=== PATIENT | female | born 1965 | race Caucasian/White ===

== ENCOUNTER 2019-03-08 16:25 | Observation (INO) ==
--- OUTSIDE RECORDS SUMMARY | 2019-03-08 16:29 | External Medical Summary | Continuity of Care Document ---
:1965 Author Name Annika Ryan Address Unavailable Unavailable , Care Team Providers Name Role Phone Raji Tavarez PA-C Unavailable [email or web address] PCP, UNKNOWN Unavailable Unavailable Problems Active medical history not documented Allergies and Adverse Reactions Allergy history not documented Medications Medications not documented Procedures Procedures not documented Immunizations Immunizations not documented Plan of Treatment Planned Observations Planned Goals not documented Results No Known Results Results not documented Encounters Appointment; Erin Tavarez PA-C 13-Apr-2009 12:30 Encounter Diagnosis: Problem not documented
[2019-03-08] MEDS ORDERED: SODIUM CHLORIDE 0.9% 1000ML 1,000 ML IV ONE (16:35)
[2019-03-08] MEDS ORDERED: ASPIRIN CHEW 324 MG PO STA (16:36)
[2019-03-08] MEDS ORDERED: NITROGLYCERIN SL 0.4 MG/TAB TAB SL STA (16:36)
[2019-03-08 17:24] LABS: Basophils # (auto) 0.03 K/uL (0-0.2); Basophils % (auto) 0.3 %; Eosinophils # (auto) 0.16 K/uL (0-0.5); Eosinophils % (auto) 1.9 %; Hematocrit (blood only) 38.8 % (37-47); Hemoglobin 14.2 g/dL (12.0-16.0); Immature Granulocytes # (auto) 0.05 K/uL (0.00-0.02); Immature Granulocytes % (auto) 0.6 %; Lymphocytes # (auto) 2.65 K/uL (1.2-3.4); Lymphocytes % (auto) 30.8 %; Mean Corpuscular Hgb Conc 36.6 g/dL (32-36); Mean Corpuscular Volume 78.2 fL (80-100); Mean Platelet Volume 10.6 fL (7.4-10.4); Monocytes # (auto) 0.58 K/uL (0.11-0.59); Monocytes % (auto) 6.7 %; Neutrophils # (auto) 5.13 K/uL (1.4-6.5); Neutrophils % (auto) 59.7 %; Platelet Count 274 K/uL (130-400); RDW Coefficient of Variation 13.3 % (11.5-14.5); RDW Standard Deviation 37.5 fL (36.4-46.3); Red Blood Count 4.96 M/uL (4.2-5.4)
[2019-03-08 17:35] LABS: D Dimer 480 ug/L FEU (0-500)
[2019-03-08 17:46] LABS: Alanine Aminotransferase 34 U/L (12-78); Albumin Level 4.5 gm/dl (3.4-5.0); Aspartate Aminotransferase 11 U/L (15-37); BUN Creatinine Ratio 21.1 (10-20); Blood Urea Nitrogen 19 mg/dl (7-18); Calcium 9.4 mg/dl (8.5-10.1); Carbon Dioxide 25 mmol/L (21-32); Chloride 97 mmol/L (98-107); Est GFR (African American) 81.8; Est GFR (Non-African American) 70.6; Glucose 362 mg/dl (70-99); Potassium 3.3 mmol/L (3.5-5.1); Sodium 132 mmol/L (136-145)
[2019-03-08 17:47] LABS: Albumin Globulin Ratio 1.3 (0.9-2); Alkaline Phosphatase 113 U/L (45-117); Bilirubin,Total 0.3 mg/dl (0.2-1); Globulin 3.6 gm/dl (2.5-4.0); Total Protein 8.1 gm/dl (6.4-8.2); Troponin I < 0.015 ng/ml (0-0.045)
[2019-03-08 17:58] LABS: Beta-Hydroxybutyrate 4.41 mg/dl (0.2-2.81)
[2019-03-08] MEDS ORDERED: NovoLIN-R INSULIN PER UNIT CHARGE IV STA (18:01)
[2019-03-08] MEDS ORDERED: POTASSIUM CHLORIDE 20 MEQ TABCR PO STA (18:01)
--- NOTE | 2019-03-08 18:01 | XRay Report ---
XR chest 1V portable HISTORY: Atypical Chest Pain COMPARISON: Chest 03/27/2010. FINDINGS: No pneumothorax. No pleural effusions. The cardiac silhouette is top normal in size. This r emains unchanged. Hazy appearance to the lung bases is likely due to the overlapping soft tissue. Oth erwise, the lungs are clear. IMPRESSION: No acute process. Electronically signed by: Bert Ang M.D. 03/08/2019 5:59 PM
--- NOTE | 2019-03-08 19:10 | History & Physical Report ---
Date of Service March 08, 2019 Assessment & Plan (1) Chest pain: (2) Palpitations: -Admit to telemetry -Patient presenting from home with reports of palpitations and chest tightness for the past 3 weeks with acute worsening of her symptoms today (self-reported heart rate in the 140s today) -In the ED, heart rate is controlled, initial troponin negative, EKG without acute ST changes; symptoms resolved after SL nitro -Risk factors: HTN, DM, HLD, obesity -Monitor on telemetry for arrhythmias -Continue cycle cardiac enzymes, check resting echo -PRN nitro and EKG with further episodes of chest pain -If no arrhythmias noted overnight, consider stress test in a.m. -? Due to hypertensive urgency; BP 174/89 on arrival, improved after SL nitro -Receive full dose aspirin in the ED, will continue with aspirin 81 mg tomorrow -Lipid panel in a.m. -Cardiac cath 2009: Normal coronaries; stress echo 06/2015: Equivocal <[address] depression lateral leads, however negative for inducible ischemia -Cardiology consult (3) DM2 (diabetes mellitus, type 2): -Hgb A1c 12.9 11/2018 -Blood glucose 362 on arrival, received 5 units regular insulin IV in ED -On metformin and high doses of insulin at home -Pharmacy glycemic consult (4) HTN (hypertension): -BP elevated on arrival, 174/89 -Improved after SL nitro -Continue home dose losartan for now (5) HLD (hyperlipidemia): -Continue statin (6) Depression: -Continue sertraline (7) DVT prophylaxis: -SQ Lovenox History of Present Illness Chief Complaint: Chest pain, palpitations Primary Care Provider: Khushi Artis MD 53-year-old female who presents to the ED with chest pain palpitations. Patient reports she first noticed her symptoms about 3 weeks ago. Patient states she has a watch that monitors her heart rate. A few weeks ago, she reports she was having palpitations and chest tightness and noted that her heart rate was in the 90s (normally runs in the low 70s). She also would have associated shortness of breath, diaphoresis, nausea, lightheadedness. She reports symptoms have persisted and she is having several episodes per day. No specific causative or relieving factors. Today, while walking to the bus she reports symptoms acutely worsened. She noted her heart rate to be in the 140s. She again had the shortness of breath however it was much worse than it had been. Symptoms persisted throughout the day and she presented to the ER for further evaluation. Patient denies any other recent illnesses, fevers, chills. No abdominal pain, vomiting, diarrhea. She denies syncopal events. No urinary symptoms. In the ED, patient's work-up is essentially unremarkable. Initial troponin is negative and EKG does not show any acute ST changes. She was given sublingual nitroglycerin with resolution of her symptoms. She was also given IVF, potassium replacement, and IV insulin (blood glucose 362). Allergies Allergy/AdvReac Type Severity Reaction Status Date / Time Cephalosporins Allergy Severe Anaphylaxis Verified 03/08/19 19:14 Penicillins Allergy Severe Anaphylaxis Verified 03/08/19 19:14 clindamycin Allergy Unknown MOUTH Verified 03/08/19 19:14 SORES,SOME THROAT SWELLING Tetracyclines Allergy Unknown Unknown Verified 03/08/19 19:14 trimethobenzamide Allergy Unknown Unknown Verified 03/08/19 19:14 venlafaxine Allergy Unknown COULDN'T Verified 03/08/19 19:14 FOCUS metformin AdvReac Unknown Diarrhea Verified 03/08/19 19:14 and weakness Dust Mite Extract Allergy Unknown POSITIVE Uncoded 03/08/19 19:14 ON ALLERGY TEST Home Medications Home Medications Medication Instructions Recorded Confirmed Type cyanocobalamin (vitamin B-12) 1,000 mcg PO DAILY 03/08/19 03/08/19 History cyanocobalamin (vitamin B-12) 1,000 mcg PO HS 03/08/19 03/08/19 History [Vitamin B-12] insulin aspart U-100 [Novolog 0 unit SUBCUT DIRECTED 03/08/19 03/08/19 History Flexpen U-100 Insulin] insulin aspart U-100 [Novolog See Rx Instructions .ROUTE .COMPLEX 03/08/19 03/08/19 History Flexpen U-100 Insulin] insulin glargine [Basaglar KwikPen 65 unit SUBCUT BID 03/08/19 03/08/19 History U-100 Insulin] losartan 25 mg PO HS 03/08/19 03/08/19 History magnesium 500 mg PO DAILY 03/08/19 03/08/19 History magnesium 500 mg PO HS 03/08/19 03/08/19 History metformin 1,700 mg PO HS 03/08/19 03/08/19 History metformin 850 mg PO QDL 03/08/19 03/08/19 History multivitamin 1 tab PO DAILY 03/08/19 03/08/19 History omeprazole 20 mg PO HS 03/08/19 03/08/19 History sertraline 25 mg PO HS 03/08/19 03/08/19 History sertraline 50 mg PO HS 03/08/19 03/08/19 History simvastatin 40 mg PO HS 03/08/19 03/08/19 History Past Med/Surg History Medical History Obesity (Chronic) DM2 (diabetes mellitus, type 2) (Chronic) "Requiring insulin " HTN (hypertension) (Chronic) HLD (hyperlipidemia) (Chronic) Depression (Chronic) delivery delivered (Chronic) "x2" History of hysteroscopy (Chronic) Diabetes mellitus (Chronic) HTN (hypertension) (Chronic) Surgical History H/O knee surgery (Chronic) H/O tubal ligation (Chronic) Hx of cardiac cath (Chronic) 2009 - normal coronaries H/O hernia repair (Chronic) S/P cholecystectomy (Chronic) Family History Mother Kidney disease Father Diabetes Uncle Heart disease Uncle Heart disease Uncle Heart disease Uncle Heart disease Social History Feels Safe at Home: Yes Smoking Status: Former smoker Hx Alcohol Use: Yes Alcohol type: beer and wine Alcohol Intake Frequency: Weekly Review of Systems Review of Systems: ROS per HPI, all other systems reviewed and negative Physical Exam Constitutional: WD/WN, vitals as above Eyes: PERRL, conjunctivae normal, anicteric sclerae ENMT: external ear and nose normal, oropharynx normal Respiratory: normal respiratory effort, lungs clear to auscultation Cardiovascular: Rate/Rhythm: regular rate and regular rhythm Vessels: normal peripheral pulses Extremities: no edema Chest (Breasts): Additional Comments: Mild sternal tenderness noted, patient reports not similar to pain she was experiencing before Gastrointestinal (Abdomen): normal bowel sounds, soft, nontender, no hepatosplenomegaly Musculoskeletal: no cyanosis or clubbing, extremities motor strength 5/5 Skin: no rashes, warm and dry Neurologic: PERRL, EOMI, accommodation nl, no face palsy, no dysarthria Psychiatric: A+Ox3, euthymic affect Results & Data Vital Signs (Past 12 Hours) Vital Signs Temp Pulse Pulse Resp BP BP Pulse Ox 03/08/19 17:52 76 16 116/57 L 03/08/19 17:21 88 18 114/74 98 03/08/19 17:13 82 80 20 159/74 H 96 03/08/19 16:28 36.4 C L 97 H 20 174/89 H 95 Laboratory Results Short CBC 03/08/19 Range/Units 17:07 WBC 8.60 (4.8-10.8) K/uL Hgb 14.2 (12.0-16.0) g/dL Hct 38.8 (37-47) % Plt Count 274 (130-400) K/uL BMP 03/08/19 17:07 Sodium 132 L Potassium 3.3 L Chloride 97 L Carbon Dioxide 25 BUN 19 H Creatinine 0.92 Glucose 362 H* Calcium 9.4 Cardiac Enzymes 03/08/19 Range/Units 17:07 Troponin I < 0.015 (0-0.045) ng/ml Liver Function 03/08/19 Range/Units 17:07 Total Bilirubin 0.3 (0.2-1) mg/dl AST 11 L (15-37) U/L ALT 34 (12-78) U/L Alkaline Phosphatase 113 (45-117) U/L Albumin 4.5 (3.4-5.0) gm/dl Diagnostic Findings CXR IMPRESSION: No acute process. Code Status & VTE Plan VTE Prophylaxis Plan VTE Prophylaxis will be ordered: Yes Supervising Physician Co-Signing Physician Notes Pt was seen and examined. Agreed with Sharri MARTINI exam, assessment am plan. 53-year-old female with PMH HTN, Diabetes, obesity presents to the ED with chest pain associated with palpitations. Pt said that she is starting having chest discomfort and palpitation in the last 2 weeks. She said that she does have a smart watch and about 1 week ago she noticed her HR was in the 90's. She said that today while walking to the bus stop, she developed pressure like chest pain associated with SOB. She said that she checked her watch and her HR was in the 140's. She called her PCP office and was advised to go to the ER. She said that she had a stress test done few years ago that was stopped because she was not able to complete it. Troponin on admission negative, will trend 2 more sets. EKG showed no ischemic changes. CXR showed no acute finding. Will get an echo in am. cardiology consult. Will make NPO after midnight for possible stress. Will monitor closely in tele. MD Kevin (1) Chest pain Chest pain type: unspecified Qualified Code(s): R07.9 - Chest pain, unspecified
[2019-03-08] MEDS ORDERED: ACETAMINOPHEN 325 MG TAB PO PRN (20:07)
[2019-03-08] MEDS ORDERED: NITROGLYCERIN SL 0.4 MG/TAB TAB SL PRN (20:07)
[2019-03-08] MEDS ORDERED: PHARMACY GLYCEMIC MGMT CONSULT PRN (20:16)
[2019-03-08 20:44] LABS: Prothrombin Time 9.8 Seconds (9.0-12.0)
[2019-03-08] MEDS ORDERED: GLUCOSE 40% GEL 15 GM TUBE PO PRN (20:45)
[2019-03-08] MEDS ORDERED: CARBOHYDRATES FOR HYPOGLYCEMIA PO PRN (20:45)
[2019-03-08] MEDS ORDERED: GLUCOSE 10 TABS/TUBE PO PRN (20:45)
[2019-03-08] MEDS ORDERED: DEXTROSE 50% 50 ML SYRINGE IV PRN (20:45)
[2019-03-08] MEDS ORDERED: GLUCAGON FOR INJ 1 MG VIAL IM PRN (20:45)
[2019-03-08] MEDS: INSULIN GLARGINE SOLOSTAR 100 UNITS/ML 3 ML PEN SC SCH (20:58)
[2019-03-08] MEDS ORDERED: ENOXAPARIN INJ 40 MG/0.4 ML SYR SQ SCH (21:00)
[2019-03-08] MEDS ORDERED: SIMVASTATIN 40 MG TAB PO SCH (21:00)
[2019-03-08] MEDS ORDERED: LOSARTAN POTASSIUM 25 MG TAB PO SCH (21:00)
[2019-03-08] MEDS: INSULIN ASPART 100 UNITS/ML 3 ML PEN SC SCH ×2 (21:03→23:56)
--- NOTE | 2019-03-08 23:42 | Emergency Department Note ---
Entered by Leena Watson acting as a scribe for Harshad Enriquez DO History of Present Illness General Chief complaint: Tachycardia Stated complaint: ELEVATED HERAT RATE 142, DOEN'T FEEL RIGHT Source: patient and RN notes reviewed History of Present Illness Provider complaint: chest pain Onset (ago): week(s) 1 Location: chest Pain Consistency: + constant Maximum Pain Intensity: 5 Quality: + other (tightness) Associated symptoms: + nausea/vomiting (+nausea, -vomiting), + shortness of breath and + other (+increased heart rate, +dizziness, +right arm numbness) The patient is a 53 year old female who presents to the Emergency Room with complaints of constant chest pain for the past week. She reports that it feels like tightness in her chest. She notes that her heart rate is usually in high 80s, but today it was consistently above 100 BPM. The patient states that she has had shortness of breath for the past 2-3 weeks. She notes that she has intermittent episodes of numbness in her right arm. She states that she currently has chest pain. She states that she has nausea, but denies any vomiting. The patient states that she has episodes of dizziness when she stands up. She denies any recent travel. She denies any past blood clots or history of cancer. She states that she has a history of hypertension and diabetes mellitus. She states that she is a non-smoker. Per the nurses note, the patient is febrile. Home Medications Home Medications Medication Instructions Recorded Confirmed Type cyanocobalamin (vitamin B-12) 1,000 mcg PO DAILY 03/08/19 03/08/19 History cyanocobalamin (vitamin B-12) 1,000 mcg PO HS 03/08/19 03/08/19 History [Vitamin B-12] insulin aspart U-100 [Novolog 0 unit SUBCUT DIRECTED 03/08/19 03/08/19 History Flexpen U-100 Insulin] insulin aspart U-100 [Novolog See Rx Instructions .ROUTE .COMPLEX 03/08/19 03/08/19 History Flexpen U-100 Insulin] insulin glargine [Basaglar KwikPen 65 unit SUBCUT BID 03/08/19 03/08/19 History U-100 Insulin] losartan 25 mg PO HS 03/08/19 03/08/19 History magnesium 500 mg PO DAILY 03/08/19 03/08/19 History magnesium 500 mg PO HS 03/08/19 03/08/19 History metformin 1,700 mg PO HS 03/08/19 03/08/19 History metformin 850 mg PO QDL 03/08/19 03/08/19 History multivitamin 1 tab PO DAILY 03/08/19 03/08/19 History omeprazole 20 mg PO HS 03/08/19 03/08/19 History sertraline 25 mg PO HS 03/08/19 03/08/19 History sertraline 50 mg PO HS 03/08/19 03/08/19 History simvastatin 40 mg PO HS 03/08/19 03/08/19 History Allergies Allergy/AdvReac Type Severity Reaction Status Date / Time Cephalosporins Allergy Severe Anaphylaxis Verified 03/08/19 19:14 Penicillins Allergy Severe Anaphylaxis Verified 03/08/19 19:14 clindamycin Allergy Unknown MOUTH Verified 03/08/19 19:14 SORES,SOME THROAT SWELLING Tetracyclines Allergy Unknown Unknown Verified 03/08/19 19:14 trimethobenzamide Allergy Unknown Unknown Verified 03/08/19 19:14 venlafaxine Allergy Unknown COULDN'T Verified 03/08/19 19:14 FOCUS metformin AdvReac Unknown Diarrhea Verified 03/08/19 19:14 and weakness Dust Mite Extract Allergy Unknown POSITIVE Uncoded 03/08/19 19:14 ON ALLERGY TEST Past Med/Surg History Medical History Obesity (Chronic) DM2 (diabetes mellitus, type 2) (Chronic) "Requiring insulin " HTN (hypertension) (Chronic) HLD (hyperlipidemia) (Chronic) Depression (Chronic) delivery delivered (Chronic) "x2" History of hysteroscopy (Chronic) Diabetes mellitus (Chronic) HTN (hypertension) (Chronic) Surgical History H/O knee surgery (Chronic) H/O tubal ligation (Chronic) Hx of cardiac cath (Chronic) 2009 - normal coronaries H/O hernia repair (Chronic) S/P cholecystectomy (Chronic) Family History Mother Kidney disease Father Diabetes Uncle Heart disease Uncle Heart disease Uncle Heart disease Uncle Heart disease Social History Preferred Language: Latvian Communication Ability: Effective Harness Brusher Required: No Beliefs That Will Affect Care: None Current Living Situation: Spouse Other Information That Helps Us Care for You: No Feels Safe at Home: Yes Safety Concerns: Feels Safe At This Time Smoking Status: Former smoker Smoking End Date: 1991 ; Hx Alcohol Use: Yes Alcohol type: beer and wine Alcohol Intake Frequency: Weekly Hx Substance Use: No Review of Systems See HPI for pertinent positives & negatives. and A total of 10 systems reviewed and were otherwise negative Physical Exam Vital Signs Vital Signs - 24 hr 03/08/19 16:28 03/08/19 16:57 03/08/19 17:00 Temperature 36.4 C L Temperature Source Oral Sepsis Recent Fever Within 48 Hours No Sepsis New/Unexplained Change in Mental Status No Sepsis Action Taken by Nursing No Action Required Pulse Rate 97 H 83 85 Pulse Rate [Right Finger] Pulse Rate from SpO2 Sensor Respiratory Rate 20 24 19 Respiratory Effort / Characteristics Non-Labored Respiratory Depth Normal Respiratory Pattern Regular Blood Pressure 174/89 H Blood Pressure [Right Arm] Blood Pressure Mean 117 Blood Pressure Mean [Right Arm] Pulse Oximetry 95 Oxygen Delivery Method Room Air 03/08/19 17:11 03/08/19 17:13 03/08/19 17:21 Temperature Temperature Source Sepsis Recent Fever Within 48 Hours Sepsis New/Unexplained Change in Mental Status Sepsis Action Taken by Nursing Pulse Rate 82 87 Pulse Rate [Right Finger] 80 88 Pulse Rate from SpO2 Sensor 85 89 Respiratory Rate 17 20 31 H Respiratory Effort / Characteristics Non-Labored Non-Labored Respiratory Depth Normal Normal Respiratory Pattern Blood Pressure 159/74 H 114/75 Blood Pressure [Right Arm] 159/74 H 114/74 Blood Pressure Mean 102 88 Blood Pressure Mean [Right Arm] 102 87 Pulse Oximetry 95 96 96 Oxygen Delivery Method Room Air 03/08/19 17:30 03/08/19 17:50 03/08/19 17:52 Temperature Temperature Source Sepsis Recent Fever Within 48 Hours Sepsis New/Unexplained Change in Mental Status Sepsis Action Taken by Nursing Pulse Rate 81 73 Pulse Rate [Right Finger] 76 Pulse Rate from SpO2 Sensor 82 73 Respiratory Rate 20 17 16 Respiratory Effort / Characteristics Respiratory Depth Respiratory Pattern Blood Pressure 129/66 116/57 L Blood Pressure [Right Arm] 116/57 L Blood Pressure Mean 87 76 Blood Pressure Mean [Right Arm] 76 Pulse Oximetry 95 96 Oxygen Delivery Method 03/08/19 18:00 03/08/19 18:30 03/08/19 18:31 Temperature Temperature Source Sepsis Recent Fever Within 48 Hours Sepsis New/Unexplained Change in Mental Status Sepsis Action Taken by Nursing Pulse Rate 77 71 75 Pulse Rate [Right Finger] Pulse Rate from SpO2 Sensor 78 72 75 Respiratory Rate 24 20 27 H Respiratory Effort / Characteristics Respiratory Depth Respiratory Pattern Blood Pressure 127/59 L 116/68 Blood Pressure [Right Arm] Blood Pressure Mean 81 84 Blood Pressure Mean [Right Arm] Pulse Oximetry 92 99 100 Oxygen Delivery Method GENERAL: alert, sitting up in bed, talking in full sentences, wearing glasses, pulse oxygen is at 98%, and heart rate is 92 bpm. EYE EXAM: normal conjunctiva OROPHARYNX: no exudate, no erythema, lips, buccal mucosa, and tongue normal and mucous membranes are moist NECK: supple, no nuchal rigidity, no adenopathy, non-tender LUNGS: Clear to auscultation. Normal chest wall mechanics HEART: no murmurs, S1 normal and S2 normal ABDOMEN: abdomen soft, non-tender, normo-active bowel sounds, no masses, no rebound or guarding. BACK: Back is symmetrical on inspection and there is no deformity, no midline tenderness, no CVA tenderness. SKIN: no rashes and no bruising UPPER EXTREMITIES: upper extremities are grossly normal. LOWER EXTREMITIES: No pitting edema, calves are equal bilaterally. NEURO EXAM: Normal sensorium, cranial nerves II-XII grossly intact, normal speech, no gross weakness of arms, no gross weakness of legs. Course 163: The patient was evaluated in room C1B, and a complete history and physical examination were performed. 1729: I reevaluated the patient and her chest pain has improved with nitroglycerine. 1810: I reevaluated the patient and updated her on her test results. 1816: I reviewed the patient's case with Sharri Britton. [facility] Hospitalist will evaluate the patient for further management Consultations Consultation #1: Sharri Britton Time: 18:17 Administered Medications Enoxaparin Sodium (Lovenox) 40 mg SQ Q24H BARBI Stop: 04/07/19 20:59 Last Admin: 03/08/19 21:38 Dose: 40 mg Documented by: [id number] Insulin Aspart (Novolog Flexpen) 0 units SC Q6 BARBI Stop: 04/07/19 20:59 Last Admin: 03/08/19 21:03 Dose: 8 units Documented by: [id number] Cosigned by: [id number] Insulin Glargine (Lantus Solostar Pen) 50 units SC BID BARBI Stop: 04/07/19 20:59 Last Admin: 03/08/19 20:58 Dose: 50 units Documented by: [id number] Cosigned by: [id number] Losartan Potassium (Cozaar) 25 mg PO HS BARBI Stop: 04/07/19 20:59 Last Admin: 03/08/19 20:56 Dose: 25 mg Documented by: [id number] Pantoprazole Sodium (Protonix) 40 mg PO DAILY BARBI Stop: 04/08/19 08:59 Last Admin: 03/08/19 21:38 Dose: 40 mg Documented by: [id number] Simvastatin (Zocor) 40 mg PO HS BARBI Stop: 04/07/19 20:59 Last Admin: 03/08/19 20:56 Dose: 40 mg Documented by: [id number] Discontinued Medications Aspirin (Aspirin) 324 mg PO NOW STA Stop: 03/08/19 16:37 Last Admin: 03/08/19 17:15 Dose: 324 mg Documented by: [id number] Sodium Chloride (Nss 1000ml) 1,000 mls @ 999 mls/hr IV .Q1H1M ONE Stop: 03/08/19 17:35 Last Infusion: 03/08/19 18:23 Dose: 0 mls/hr Documented by: [id number] Admin: 03/08/19 17:17 Dose: 999 mls/hr Documented by: [id number] Insulin Human Regular (Novolin R U-100 Per Unit) 5 units IV NOW STA Stop: 03/08/19 18:02 Last Admin: 03/08/19 18:11 Dose: 5 units Documented by: [id number] Cosigned by: [id number] Nitroglycerin (Nitrostat) 0.4 mg SL NOW STA Stop: 03/08/19 16:37 Last Admin: 03/08/19 17:17 Dose: 0.4 mg Documented by: [id number] Potassium Chloride (Klor-Con M20) 40 meq PO NOW STA Stop: 03/08/19 18:02 Last Admin: 03/08/19 18:11 Dose: 40 meq Documented by: [id number] Medical Decision Making Differential Diagnosis Differential diagnosis: Etiologies such as cardiac ischemia, aortic dissection, pulmonary embolism, pneumonia, pneumothorax, musculoskeletal, infections, pericarditis, myocarditis, esophageal rupture, gastrointestinal, as well as others were entertained. Medical Records Attestation: I reviewed the patient's medical records. Home Medications Current Medication List: was personally reviewed by me Laboratory Data Attestation: I reviewed the patient's lab results. Result diagrams: 03/08/19 17:07 03/08/19 17:07 Lab Results 03/08/19 03/08/19 03/08/19 Range/Units 17:07 17:07 17:07 WBC 8.60 (4.8-10.8) K/uL RBC 4.96 (4.2-5.4) M/uL Hgb 14.2 (12.0-16.0) g/dL Hct 38.8 (37-47) % MCV 78.2 L (80-100) fL MCH 28.6 (25-34) pg MCHC 36.6 H (32-36) g/dL RDW Std Deviation 37.5 (36.4-46.3) fL RDW Coeff of Zora 13.3 (11.5-14.5) % Plt Count 274 (130-400) K/uL MPV 10.6 H (7.4-10.4) fL Immature Gran % (Auto) 0.6 % Neut % (Auto) 59.7 % Lymph % (Auto) 30.8 % Hudson % (Auto) 6.7 % Eos % (Auto) 1.9 % Baso % (Auto) 0.3 % Immature Gran # (Auto) 0.05 H (0.00-0.02) K/uL Neut # (Auto) 5.13 (1.4-6.5) K/uL Lymph # (Auto) 2.65 (1.2-3.4) K/uL Hudson # (Auto) 0.58 (0.11-0.59) K/uL Eos # (Auto) 0.16 (0-0.5) K/uL Baso # (Auto) 0.03 (0-0.2) K/uL PT (9.0-12.0) Seconds INR (0.9-1.1) D-Dimer 480 (0-500) ug/L FEU Sodium 132 L (136-145) mmol/L Potassium 3.3 L (3.5-5.1) mmol/L Chloride 97 L (98-107) mmol/L Carbon Dioxide 25 (21-32) mmol/L Anion Gap 10.0 (3-11) BUN 19 H (7-18) mg/dl Creatinine 0.92 (0.6-1.2) mg/dl Est Cr Clr Drug Dosing 84.0 ml/min Est GFR ( Amer) 81.8 Est GFR (Non-Af Amer) 70.6 BUN/Creatinine Ratio 21.1 H (10-20) Glucose 362 H* (70-99) mg/dl POC Glucose (70-99) Calcium 9.4 (8.5-10.1) mg/dl Magnesium (1.8-2.4) mg/dl Total Bilirubin 0.3 (0.2-1) mg/dl AST 11 L (15-37) U/L ALT 34 (12-78) U/L Alkaline Phosphatase 113 (45-117) U/L Troponin I < 0.015 (0-0.045) ng/ml Total Protein 8.1 (6.4-8.2) gm/dl Albumin 4.5 (3.4-5.0) gm/dl Globulin 3.6 (2.5-4.0) gm/dl Albumin/Globulin Ratio 1.3 (0.9-2) Lipase 175 (73-393) U/L Beta-Hydroxybutyric Acd 4.41 H (0.2-2.81) mg/dl 03/08/19 03/08/19 03/08/19 Range/Units 17:07 17:07 18:43 WBC (4.8-10.8) K/uL RBC (4.2-5.4) M/uL Hgb (12.0-16.0) g/dL Hct (37-47) % MCV (80-100) fL MCH (25-34) pg MCHC (32-36) g/dL RDW Std Deviation (36.4-46.3) fL RDW Coeff of Zora (11.5-14.5) % Plt Count (130-400) K/uL MPV (7.4-10.4) fL Immature Gran % (Auto) % Neut % (Auto) % Lymph % (Auto) % Hudson % (Auto) % Eos % (Auto) % Baso % (Auto) % Immature Gran # (Auto) (0.00-0.02) K/uL Neut # (Auto) (1.4-6.5) K/uL Lymph # (Auto) (1.2-3.4) K/uL Hudson # (Auto) (0.11-0.59) K/uL Eos # (Auto) (0-0.5) K/uL Baso # (Auto) (0-0.2) K/uL PT 9.8 (9.0-12.0) Seconds INR 1.0 (0.9-1.1) D-Dimer (0-500) ug/L FEU Sodium (136-145) mmol/L Potassium (3.5-5.1) mmol/L Chloride (98-107) mmol/L Carbon Dioxide (21-32) mmol/L Anion Gap (3-11) BUN (7-18) mg/dl Creatinine (0.6-1.2) mg/dl Est Cr Clr Drug Dosing ml/min Est GFR ( Amer) Est GFR (Non-Af Amer) BUN/Creatinine Ratio (10-20) Glucose (70-99) mg/dl POC Glucose 284 H (70-99) Calcium (8.5-10.1) mg/dl Magnesium 2.0 (1.8-2.4) mg/dl Total Bilirubin (0.2-1) mg/dl AST (15-37) U/L ALT (12-78) U/L Alkaline Phosphatase (45-117) U/L Troponin I (0-0.045) ng/ml Total Protein (6.4-8.2) gm/dl Albumin (3.4-5.0) gm/dl Globulin (2.5-4.0) gm/dl Albumin/Globulin Ratio (0.9-2) Lipase (73-393) U/L Beta-Hydroxybutyric Acd (0.2-2.81) mg/dl Imaging Data Radiologist's Impression: Radiology results as stated below per my review and the radiologist's interpretation: XR chest 1V portable HISTORY: Atypical Chest Pain COMPARISON: Chest 03/27/2010. FINDINGS: No pneumothorax. No pleural effusions. The cardiac silhouette is top normal in size. This remains unchanged. Hazy appearance to the lung bases is likely due to the overlapping soft tissue. Otherwise, the lungs are clear. IMPRESSION: No acute process. Electronically signed by: Bert Ang M.D. 03/08/2019 5:59 PM ECG Data Attestation: I personally reviewed and interpreted this ECG as follows: Indication: chest pain Rate (beats per minute): 81 Rhythm: sinus rhythm Findings: + nonspecific-ST abn (inferior leads); no PVC Comparison ECG Date: from (11/01/15) Change: the following changes noted (no significant change in lead 3 and aVF, slightly different in lead 2) Blood Pressure Blood Pressure Findings: Low blood pressure Blood Pressure Disposition: further management by hospitalist AMANDA Narrative Patient is a 53-year-old female who presents the ER for shortness of breath and intermittent chest pain which is been present for the past 2 weeks. She notes that her symptoms have been getting worse. She does have a history of diabetes, hypertension and a family history of CAD. She also intermittently gets some left arm pain. IV was established blood work was obtained and shows no significant leukocytosis or anemia. INR was unremarkable. D-dimer was negative. BMP with mild hypokalemia. BSG was elevated at 362. Patient was given IV insulin. This trended down to 58. Lipase is normal. Troponin was negative. Patient was given IV fluids. She is given aspirin and nitro. Chest x-ray showed no focal infiltrate. EKG without any acute pathology. Patient was updated bedside. Discussed with the hospitalist for observation. Impression & Plan Chest pain, Shortness of breath, HTN (hypertension), Acute hyperglycemia Discharge Plan Visit Data *Final* Discharge Date/Time: 03/08/19 19:54 Chief Complaint: Tachycardia Stated Complaint: ELEVATED HERAT RATE 142, DOEN'T FEEL RIGHT ED Provider: Harshad Enriquez Discharge Problem: Chest pain, Shortness of breath, HTN (hypertension), Acute hyperglycemia Patient Disposition: Admitted As Inpatient Discharge Instructions Interventions: ED Discharge Assessment Last Done: 03/08/19 19:54 The scribe's documentation has been prepared under my direction and personally reviewed by me in its entirety. I confirm that the note above accurately reflects all work, treatment, procedures, and medical decision making performed by me.
[2019-03-09 05:45] LABS: Hematocrit (blood only) 39.8 % (37-47); Hemoglobin 13.9 g/dL (12.0-16.0); Mean Corpuscular Hgb Conc 34.9 g/dL (32-36); Mean Corpuscular Volume 79.9 fL (80-100); Mean Platelet Volume 10.8 fL (7.4-10.4); Platelet Count 244 K/uL (130-400); RDW Coefficient of Variation 13.6 % (11.5-14.5); RDW Standard Deviation 39.1 fL (36.4-46.3); Red Blood Count 4.98 M/uL (4.2-5.4); White Blood Count 7.28 K/uL (4.8-10.8)
[2019-03-09] MEDS: INSULIN ASPART 100 UNITS/ML 3 ML PEN SC SCH ×2 (06:04→13:04)
[2019-03-09 06:16] LABS: BUN Creatinine Ratio 23.6 (10-20); Calcium 8.4 mg/dl (8.5-10.1); Creatinine Clr Calc Pharmacy 121.3 ml/min; Est GFR (African American) 117.3; Est GFR (Non-African American) 101.2; Potassium 3.8 mmol/L (3.5-5.1)
[2019-03-09] MEDS: INSULIN GLARGINE SOLOSTAR 100 UNITS/ML 3 ML PEN SC SCH (08:46)
[2019-03-09] MEDS ORDERED: ASPIRIN 81 MG ECTAB PO SCH (09:00)
[2019-03-09] MEDS ORDERED: MAGNESIUM OXIDE 400 MG TAB PO SCH (09:00)
[2019-03-09] MEDS ORDERED: SERTRALINE HCL 50 MG TABLET PO SCH ×2 (09:00)
[2019-03-09] MEDS ORDERED: MULTIVITAMIN TAB PO SCH (09:00)
[2019-03-09] MEDS ORDERED: CYANOCOBALAMIN 500 MCG TABLET (VITAMIN B-12) PO SCH (09:00)
[2019-03-09] MEDS ORDERED: PANTOprazole 40 MG TAB PO SCH (09:00)
--- NOTE | 2019-03-09 09:56 | Cardiology Consultation ---
Date of Consultation March 09, 2019 Assessment & Plan (1) Chest pain: Atypical, reproducible with palpation, alleviated with stretching of the torso EKG's without acute change Troponin I negative x3 Resting echocardiography pending interpretation If resting echocardiography is acceptable would discharge home for outpatient Lexiscan nuclear stress testing (Patient notes inability to ambulate adequately for exercise stress testing (knee pain)). (2) Palpitations: EKG and telemetry with sinus/sinus tachycardia. No significant atrial or ventricular arrhythmias observed. Assess for underlying noncardiac causes. Consider addition of low-dose beta-fredy therapy for heart rate and blood pressure control. Recommend outpatient ZIO monitor to capture and document symptoms (3) HTN (hypertension): See above. Follow There is room to increase losartan if/when needed down the road as well. (4) HLD (hyperlipidemia): Continue moderate intensity statin therapy. History of Present Illness Reason for Consultation: Chest pain, palpitations Requesting Physician: VINI Faulkner Attending Physician: Elena Flores MD History of Present Illness Mr. Villa is a 53-year-old female who is being seen the request of VINI Saucedo. Reason for consultation is chest pain and palpitations. The patient describes being short of breath for the past few weeks. She also notes feeling that her heart is beating harder and at times faster than normal, noting that she can hear her heart beat in her ear. Yesterday, something felt different. She notes walking to the bus stop on her way to work at [employer]. When she got to the bus stop she noticed that her smart watch recorded a heart rate of 142 bpm. Throughout the day she noticed that her heart rate never went below 100, typically with heart rates in the 70s to 90 range. She notes feeling like she had a hard time catching her breath. She then phoned her primary care physician, Dr. Artis, who referred her to the emergency room for further evaluation. In the emergency room she was evaluated by Dr. Enriquez. EKG showed no acute change, normal sinus rhythm at 81 bpm. Repeat EKG this morning reveals normal sinus rhythm at 75 bpm with an incomplete right bundle branch block. Continuous telemetry monitoring reveals sinus rhythm/sinus tachycardia with rates ranging from 70 to 110 bpm. Troponin I negative x3, less than 0.015. Resting echocardiography has been completed though is pending interpretation. D-dimer was negative. Blood pressure was notably elevated on presentation, 174/89. This morning, the patient notes that the tightness in the chest is still "kind of there." This tightness wraps around both sides of the upper abdomen/lower chest. Patient notes that it feels musculoskeletal. The discomfort is aggravated by palpation and seems to be better when she stretches her torso. Patient previously underwent diagnostic cardiac catheterization for evaluation of atypical chest discomfort on March 28, 2010. Diagnostic cardiac catheterization performed by Dr. Alan Carias at [facility] on 03/28/2010 revealed angiographically normal coronaries with normal left ventricular systolic function and normal left heart pressures. Allergies Allergy/AdvReac Type Severity Reaction Status Date / Time Cephalosporins Allergy Severe Anaphylaxis Verified 03/08/19 19:14 Penicillins Allergy Severe Anaphylaxis Verified 03/08/19 19:14 clindamycin Allergy Unknown MOUTH Verified 03/08/19 19:14 SORES,SOME THROAT SWELLING Tetracyclines Allergy Unknown Unknown Verified 03/08/19 19:14 trimethobenzamide Allergy Unknown Unknown Verified 03/08/19 19:14 venlafaxine Allergy Unknown COULDN'T Verified 03/08/19 19:14 FOCUS metformin AdvReac Unknown Diarrhea Verified 03/08/19 19:14 and weakness Dust Mite Extract Allergy Unknown POSITIVE Uncoded 03/08/19 19:14 ON ALLERGY TEST Home Medications Home Medications Medication Instructions Recorded Confirmed Type cyanocobalamin (vitamin B-12) 1,000 mcg PO DAILY 03/08/19 03/08/19 History cyanocobalamin (vitamin B-12) 1,000 mcg PO HS 03/08/19 03/08/19 History [Vitamin B-12] insulin aspart U-100 [Novolog 0 unit SUBCUT DIRECTED 03/08/19 03/08/19 History Flexpen U-100 Insulin] insulin aspart U-100 [Novolog See Rx Instructions .ROUTE .COMPLEX 03/08/19 03/08/19 History Flexpen U-100 Insulin] insulin glargine [Basaglar KwikPen 65 unit SUBCUT BID 03/08/19 03/08/19 History U-100 Insulin] losartan 25 mg PO HS 03/08/19 03/08/19 History magnesium 500 mg PO DAILY 03/08/19 03/08/19 History magnesium 500 mg PO HS 03/08/19 03/08/19 History metformin 1,700 mg PO HS 03/08/19 03/08/19 History metformin 850 mg PO QDL 03/08/19 03/08/19 History multivitamin 1 tab PO DAILY 03/08/19 03/08/19 History omeprazole 20 mg PO HS 03/08/19 03/08/19 History sertraline 25 mg PO HS 03/08/19 03/08/19 History sertraline 50 mg PO HS 03/08/19 03/08/19 History simvastatin 40 mg PO HS 03/08/19 03/08/19 History Patient History Medical History Obesity (Chronic) DM2 (diabetes mellitus, type 2) (Chronic) "Requiring insulin " HTN (hypertension) (Chronic) HLD (hyperlipidemia) (Chronic) Depression (Chronic) delivery delivered (Chronic) "x2" History of hysteroscopy (Chronic) Diabetes mellitus (Chronic) HTN (hypertension) (Chronic) Surgical History H/O knee surgery (Chronic) H/O tubal ligation (Chronic) Hx of cardiac cath (Chronic) 2009 - normal coronaries H/O hernia repair (Chronic) S/P cholecystectomy (Chronic) Family History Mother Kidney disease Father Diabetes Uncle Heart disease Uncle Heart disease Uncle Heart disease Uncle Heart disease Social History Preferred Language: Burkinan Communication Ability: Effective Herpetology Teacher Required: No Beliefs That Will Affect Care: None Current Living Situation: Spouse Other Information That Helps Us Care for You: No Feels Safe at Home: Yes Safety Concerns: Feels Safe At This Time Smoking Status: Former smoker Smoking End Date: 1991 ; Hx Alcohol Use: Yes Alcohol type: beer and wine Alcohol Intake Frequency: Weekly Hx Substance Use: No Review of Systems Review of Systems: All systems reviewed & are unremarkable except as noted in HPI & below Physical Exam Physical Exam: General: A&Ox3. NAD. HEENT: Normocephalic. Atraumatic. PER. Conjunctiva pink, sclera clear. Neck: No carotid bruits. No JVD. Heart: Regular rate 100 bpm. No murmur. No rub. Lungs: Clear to auscultation. Abdomen: +BS. Extremities: No clubbing, cyanosis, or edema. Limited neurological examination is without focal deficits. Results & Data Vital Signs (Past 12 Hours) Vital Signs Temp Pulse Resp BP Pulse Ox 03/09/19 07:39 36.6 C 78 20 129/76 96 03/09/19 03:13 36.8 C 80 17 145/81 H 95 03/08/19 23:10 37.0 C 76 17 127/80 97 Laboratory Results - last 24 hr 03/08/19 03/08/19 03/08/19 17:07 17:07 17:07 WBC 8.60 RBC 4.96 Hgb 14.2 Hct 38.8 MCV 78.2 L MCH 28.6 MCHC 36.6 H RDW Std Deviation 37.5 RDW Coeff of Zora 13.3 Plt Count 274 MPV 10.6 H Immature Gran % (Auto) 0.6 Neut % (Auto) 59.7 Lymph % (Auto) 30.8 [place] % (Auto) 6.7 Eos % (Auto) 1.9 Baso % (Auto) 0.3 Immature Gran # (Auto) 0.05 H Neut # (Auto) 5.13 Lymph # (Auto) 2.65 [place] # (Auto) 0.58 Eos # (Auto) 0.16 Baso # (Auto) 0.03 PT INR D-Dimer 480 Sodium 132 L Potassium 3.3 L Chloride 97 L Carbon Dioxide 25 Anion Gap 10.0 BUN 19 H Creatinine 0.92 Est Cr Clr Drug Dosing 84.0 Est GFR ( Amer) 81.8 Est GFR (Non-Af Amer) 70.6 BUN/Creatinine Ratio 21.1 H Glucose 362 H* POC Glucose Calcium 9.4 Magnesium Total Bilirubin 0.3 AST 11 L ALT 34 Alkaline Phosphatase 113 Troponin I < 0.015 Total Protein 8.1 Albumin 4.5 Globulin 3.6 Albumin/Globulin Ratio 1.3 Triglycerides Cholesterol LDL Cholesterol, Calc VLDL Cholesterol, Calc HDL Cholesterol Cholesterol/HDL Ratio Lipase 175 Beta-Hydroxybutyric Acd 4.41 H 03/08/19 03/08/19 03/08/19 17:07 17:07 18:43 WBC RBC Hgb Hct MCV MCH MCHC RDW Std Deviation RDW Coeff of Zora Plt Count MPV Immature Gran % (Auto) Neut % (Auto) Lymph % (Auto) [place] % (Auto) Eos % (Auto) Baso % (Auto) Immature Gran # (Auto) Neut # (Auto) Lymph # (Auto) [place] # (Auto) Eos # (Auto) Baso # (Auto) PT 9.8 INR 1.0 D-Dimer Sodium Potassium Chloride Carbon Dioxide Anion Gap BUN Creatinine Est Cr Clr Drug Dosing Est GFR ( Amer) Est GFR (Non-Af Amer) BUN/Creatinine Ratio Glucose POC Glucose 284 H Calcium Magnesium 2.0 Total Bilirubin AST ALT Alkaline Phosphatase Troponin I Total Protein Albumin Globulin Albumin/Globulin Ratio Triglycerides Cholesterol LDL Cholesterol, Calc VLDL Cholesterol, Calc HDL Cholesterol Cholesterol/HDL Ratio Lipase Beta-Hydroxybutyric Acd 03/08/19 03/08/19 03/08/19 20:49 22:52 23:54 WBC RBC Hgb Hct MCV MCH MCHC RDW Std Deviation RDW Coeff of Zora Plt Count MPV Immature Gran % (Auto) Neut % (Auto) Lymph % (Auto) [place] % (Auto) Eos % (Auto) Baso % (Auto) Immature Gran # (Auto) Neut # (Auto) Lymph # (Auto) [place] # (Auto) Eos # (Auto) Baso # (Auto) PT INR D-Dimer Sodium Potassium Chloride Carbon Dioxide Anion Gap BUN Creatinine Est Cr Clr Drug Dosing Est GFR ( Amer) Est GFR (Non-Af Amer) BUN/Creatinine Ratio Glucose POC Glucose 258 H 313 H* Calcium Magnesium Total Bilirubin AST ALT Alkaline Phosphatase Troponin I < 0.015 Total Protein Albumin Globulin Albumin/Globulin Ratio Triglycerides Cholesterol LDL Cholesterol, Calc VLDL Cholesterol, Calc HDL Cholesterol Cholesterol/HDL Ratio Lipase Beta-Hydroxybutyric Acd 03/09/19 03/09/19 03/09/19 05:27 05:27 05:27 WBC 7.28 RBC 4.98 Hgb 13.9 Hct 39.8 MCV 79.9 L MCH 27.9 MCHC 34.9 RDW Std Deviation 39.1 RDW Coeff of Zora 13.6 Plt Count 244 MPV 10.8 H Immature Gran % (Auto) Neut % (Auto) Lymph % (Auto) [place] % (Auto) Eos % (Auto) Baso % (Auto) Immature Gran # (Auto) Neut # (Auto) Lymph # (Auto) [place] # (Auto) Eos # (Auto) Baso # (Auto) PT INR D-Dimer Sodium 139 D Potassium 3.8 D Chloride 106 Carbon Dioxide 27 Anion Gap 6.0 BUN 15 Creatinine 0.64 Est Cr Clr Drug Dosing 121.3 Est GFR ( Amer) 117.3 Est GFR (Non-Af Amer) 101.2 BUN/Creatinine Ratio 23.6 H Glucose 256 H POC Glucose Calcium 8.4 L Magnesium Total Bilirubin AST ALT Alkaline Phosphatase Troponin I < 0.015 Total Protein Albumin Globulin Albumin/Globulin Ratio Triglycerides 328 H Cholesterol 129 LDL Cholesterol, Calc 32 VLDL Cholesterol, Calc 66 HDL Cholesterol 31 Cholesterol/HDL Ratio 4 Lipase Beta-Hydroxybutyric Acd 03/09/19 06:02 WBC RBC Hgb Hct MCV MCH MCHC RDW Std Deviation RDW Coeff of Zora Plt Count MPV Immature Gran % (Auto) Neut % (Auto) Lymph % (Auto) [place] % (Auto) Eos % (Auto) Baso % (Auto) Immature Gran # (Auto) Neut # (Auto) Lymph # (Auto) [place] # (Auto) Eos # (Auto) Baso # (Auto) PT INR D-Dimer Sodium Potassium Chloride Carbon Dioxide Anion Gap BUN Creatinine Est Cr Clr Drug Dosing Est GFR ( Amer) Est GFR (Non-Af Amer) BUN/Creatinine Ratio Glucose POC Glucose 272 H Calcium Magnesium Total Bilirubin AST ALT Alkaline Phosphatase Troponin I Total Protein Albumin Globulin Albumin/Globulin Ratio Triglycerides Cholesterol LDL Cholesterol, Calc VLDL Cholesterol, Calc HDL Cholesterol Cholesterol/HDL Ratio Lipase Beta-Hydroxybutyric Acd (1) Chest pain Chest pain type: unspecified Qualified Code(s): R07.9 - Chest pain, unspecified
[2019-03-09 13:08] LABS: Beta-Hydroxybutyrate 3.17 mg/dl (0.2-2.81)
[2019-03-09] MEDS ORDERED: BASAGLAR INSULIN SQ ONE (14:00)
--- NOTE | 2019-03-09 14:49 | Pharmacy Report ---
Glycemic Control Consultation - Date of Service March 09, 2019 - Scope Scope: Glycemic Pharmacist consulted by Sharri Chaudhry on 03/08 for glycemic control and to write orders per [facility] inpatient glycemic control protocol - Objective Weight: 102.2 kg Accuchecks BSG (last 24hrs): 03/08/19 03/08/19 03/08/19 17:07 18:43 20:49 Glucose 362 H* POC Glucose 284 H 258 H 03/08/19 03/09/19 03/09/19 23:54 05:27 06:02 Glucose 256 H POC Glucose 313 H* 272 H 03/09/19 12:18 Glucose 325 H* POC Glucose Laboratory Data (last 24hrs): 03/08/19 03/09/19 03/09/19 17:07 05:27 12:18 Potassium 3.3 L 3.8 D Carbon Dioxide 25 27 Anion Gap 10.0 6.0 Creatinine 0.92 0.64 Est Cr Clr Drug Dosing 84.0 121.3 Beta-Hydroxybutyric Acd 4.41 H 3.17 H - Recent Pertinent Medications Outpatient Anti-diabetic Regimen: * basaglar 65 units BID, Novolog 12 units with breakfast, 16 with lunch, 15 with dinner + SSI CF 1:25 for BSG >125 * A1c = pending for tomorrow Risk Factors for Insulin Resistance: * Diet: T2DM - Assessment & Plan Assessment & Plan: ASSESSMENT: * 53 year old female admitted with chest pain/cardio workup pending. PMHx significant for DM2, htn,hld * Patient reports taking 65 units prior to hospital admission + 25 short acting insulin on 03/08 - receives total of ~173 units of insulin outpatient * BSGs trending down this morning from 313 to 256 mg/dL - patient continues NPO ; give 50 units of Lantus * Lunchtime BSG trending up despite NPO status to 325 mg/dL - also now starting diet, will tighten CF/CR and also provide additional Lantus to make up for reduced doses * Patient requesting to use their own Basaglar - labeled and sent up to patient. Will add overnight checks. PLAN FOR INPATIENT GLYCEMIC CONTROL: * Basal insulin * Lantus 50 x 1 this AM (NPO status) * Ordered 30 units x 1 for lunchtime - diet started, BSGs trending up * Basaglar HS per scale (if BSG 180 or less give 50 units, if BSG greater than 180 give 65 units) * Bolus insulin - tighten * NovoLog per scale ACHS or Q6hrs while NPO * Goal Range: Low 110 mg/dL - High 140 mg/dL * Correction Factor: 5 mg/dL/unit * Nutritional / Prandial insulin per carb ratio of 1 unit per 2 grams CHO consumed * Please note that the plan above was derived based on current level of insulin resistance and hospital stress. These recommendations are appropriate for inpatient admission only. Plan of care upon discharge will need to be reassessed to avoid potential outpatient hypo/hyperglycemia. Thank you.
[2019-03-09] MEDS ORDERED: INSULIN ASPART 100 UNITS/ML 3 ML PEN SC SCH (16:30)
--- NOTE | 2019-03-09 17:26 | Hospitalist Progress Note ---
Date of Service March 09, 2019 Assessment & Plan (1) Chest pain: symptom has resolved appreciate input from Cardiology symptom atypical for angina -ongoing intermittently for last 3 weeks EKG shows no ischemic changes serial troponin negative ECHO : normal LV function , with no wall motion abnormality stable to be discharged home today recommends to addition of Lopressor 12.5 mg daily pt will be continued with Losartan 25 mg daily clinic follow up with Cardiology for Lexiscan cardiac stress test (2) Palpitations: - -pt reports of palpitations and chest tightness for the past 3 weeks -overnight telemetry shows no arrythmia /no tachycardia -remains in sinus with HR in 80-90's ECHO : no wall motion abnormality - -Cardiac cath 2009: Normal coronaries; stress echo 06/2015: Equivocal <[address] depression lateral leads, however negative for inducible ischemia -appreciate input from Cardiology out pt Zio patch addition of Lopressor 12.5 mg daily (3) DM2 (diabetes mellitus, type 2): very poorly controlled -Hgb A1c 12.9 11/2018 BSG remained significantly high during her hospital stay -On metformin and high doses of insulin at home -Pharmacy glycemic consult-appreciated pt follows with [facility] diabetic clinic at [facility] pt is adviced to continued follow up with DM clinic for further titration of insulin regimen as needed (4) HTN (hypertension): presented with hypertensive urgency possibly contributing to presenting symptom BP improved while in hospital appreciate input from cardiology recommend addition of low dose Lopressor 12.5 mg daily pt is asked to cont to take Losartan close follow up with Family physician for BP monitoring and management (5) HLD (hyperlipidemia): -Continue statin (6) Depression: -Continue sertraline (7) DVT prophylaxis: -SQ Lovenox CODE STATUS : FULL CODE DISPOSITION : stable to be discharged home today Subjective did not had any symptom of chest heaviness /palpitation /dizzy spell today no SOB no arrythmia or tachycardia noted on tele appreciate input from cardiology symptom on presentation were possible due to Hypertensive urgency recommends to add Lopressor 12.5 mg daily Zio patch to monitor for arrythmia out pt cardiac lexican test ( 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 do 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 ) Physical Exam Constitutional: WD/WN, vitals as above Eyes: PERRL, conjunctivae normal, anicteric sclerae ENMT: external ear and nose normal, oropharynx normal Respiratory: normal respiratory effort, lungs clear to auscultation Cardiovascular: Rate/Rhythm: regular rate and regular rhythm Vessels: normal peripheral pulses Extremities: no edema Gastrointestinal (Abdomen): normal bowel sounds, soft, nontender, no hepatosplenomegaly Musculoskeletal: no cyanosis or clubbing, extremities motor strength 5/5 Skin: no rashes, warm and dry Neurologic: PERRL, EOMI, accommodation nl, no face palsy, no dysarthria Psychiatric: A+Ox3, euthymic affect Results & Data Vital Signs (Past 12 Hours) Vital Signs Temp Pulse Resp BP Pulse Ox 03/09/19 15:21 36.8 C 83 18 133/85 96 03/09/19 12:08 36.7 C 94 H 18 142/84 H 96 03/09/19 07:39 36.6 C 78 20 129/76 96 (1) Chest pain Chest pain type: unspecified Qualified Code(s): R07.9 - Chest pain, unspecified (2) DM2 (diabetes mellitus, type 2) Diabetes mellitus terminal superintendent insulin use: with care home use Diabetes mellitus complication status: with hyperglycemia Qualified Code(s): E11.65 - Type 2 diabetes mellitus with hyperglycemia; Z79.4 - half-way (current) use of insulin (3) HTN (hypertension) Hypertension type: unspecified Qualified Code(s): I10 - Essential (primary) hypertension (4) HLD (hyperlipidemia) Hyperlipidemia type: unspecified Qualified Code(s): E78.5 - Hyperlipidemia, unspecified (5) Depression Depression Type: unspecified Qualified Code(s): F32.9 - Major depressive disorder, single episode, unspecified
--- NOTE | 2019-03-09 17:41 | Discharge Summary ---
Date of Service March 09, 2019 Admission HPI Per Admitting Provider 53-year-old female who presents to the ED with chest pain palpitations. Patient reports she first noticed her symptoms about 3 weeks ago. Patient states she has a watch that monitors her heart rate. A few weeks ago, she reports she was having palpitations and chest tightness and noted that her heart rate was in the 90s (normally runs in the low 70s). She also would have associated shortness of breath, diaphoresis, nausea, lightheadedness. She reports symptoms have persisted and she is having several episodes per day. No specific causative or relieving factors. Today, while walking to the bus she reports symptoms acutely worsened. She noted her heart rate to be in the 140s. She again had the shortness of breath however it was much worse than it had been. Symptoms persisted throughout the day and she presented to the ER for further evaluation. Patient denies any other recent illnesses, fevers, chills. No abdominal pain, vomiting, diarrhea. She denies syncopal events. No urinary symptoms. In the ED, patient's work-up is essentially unremarkable. Initial troponin is negative and EKG does not show any acute ST changes. She was given sublingual nitroglycerin with resolution of her symptoms. She was also given IVF, potassium replacement, and IV insulin (blood glucose 362). Principal Diagnosis ATYPICAL CHEST PAIN /NO ACUTE CORONARY EVENT /HYPERGLYCEMIA/TYPE 2 DIABETES Discharge Exam Constitutional WD/WN, vitals as above Eyes PERRL, conjunctivae normal, anicteric sclerae ENMT external ear and nose normal, oropharynx normal Respiratory normal respiratory effort, lungs clear to auscultation Cardiovascular Rate/Rhythm: regular rate and regular rhythm Vessels: normal peripheral pulses Extremities: no edema Gastrointestinal (Abdomen) normal bowel sounds, soft, nontender, no hepatosplenomegaly Musculoskeletal no cyanosis or clubbing, extremities motor strength 5/5 Skin no rashes, warm and dry Neurologic PERRL, EOMI, accommodation nl, no face palsy, no dysarthria Psychiatric A+Ox3, euthymic affect Discharge Data Allergies Allergy/AdvReac Type Severity Reaction Status Date / Time Cephalosporins Allergy Severe Anaphylaxis Verified 03/08/19 19:14 Penicillins Allergy Severe Anaphylaxis Verified 03/08/19 19:14 clindamycin Allergy Intermediate MOUTH Verified 03/09/19 15:40 SORES,SOME THROAT SWELLING house dust mite Allergy Unknown POSITIVE Verified 03/09/19 15:40 ON ALLERGY TEST Tetracyclines Allergy Unknown Unknown Verified 03/08/19 19:14 trimethobenzamide Allergy Unknown Unknown Verified 03/08/19 19:14 metformin AdvReac Intermediate Diarrhea Verified 03/09/19 15:40 and weakness venlafaxine AdvReac Mild COULDN'T Verified 03/09/19 15:40 FOCUS Consultations 03/08/19 18:21 ED Decision to Admit Stat 03/08/19 20:07 Consult Cardiology Routine Hospital Course (1) Chest pain: symptom has resolved appreciate input from Cardiology symptom atypical for angina -ongoing intermittently for last 3 weeks EKG shows no ischemic changes serial troponin negative ECHO : normal LV function , with no wall motion abnormality stable to be discharged home today recommends to addition of Lopressor 12.5 mg daily pt will be continued with Losartan 25 mg daily clinic follow up with Cardiology for Lexiscan cardiac stress test (2) Palpitations: - -pt reports of palpitations and chest tightness for the past 3 weeks -overnight telemetry shows no arrythmia /no tachycardia -remains in sinus with HR in 80-90's ECHO : no wall motion abnormality - -Cardiac cath 2009: Normal coronaries; stress echo 06/2015: Equivocal <[address] depression lateral leads, however negative for inducible ischemia -appreciate input from Cardiology out pt Zio patch addition of Lopressor 12.5 mg daily (3) DM2 (diabetes mellitus, type 2): very poorly controlled -Hgb A1c 12.9 11/2018 BSG remained significantly high during her hospital stay -On metformin and high doses of insulin at home -Pharmacy glycemic consult-appreciated pt follows with [facility] diabetic clinic at [facility] pt is adviced to continued follow up with DM clinic for further titration of insulin regimen as needed (4) HTN (hypertension): presented with hypertensive urgency possibly contributing to presenting symptom BP improved while in hospital appreciate input from cardiology recommend addition of low dose Lopressor 12.5 mg daily pt is asked to cont to take Losartan close follow up with Family physician for BP monitoring and management (5) HLD (hyperlipidemia): -Continue statin (6) Depression: -Continue sertraline (7) DVT prophylaxis: -SQ Lovenox CODE STATUS : FULL CODE DISPOSITION : stable to be discharged home today Total Time Total Time Spent Total Time Spent (In Minutes): approx 35 mins Total Time Includes: Examination of the Patient, Discharge Planning and Medication Reconciliation Discharge Plan Discharge Items Patient Disposition: Home - Self-Care Reason For Visit: CHEST PAIN,PALPITATIONS Discharge Diagnosis: ATYPICAL CHEST PAIN /NO ACUTE CORONARY EVENT /HYPERGLYCEMIA/TYPE 2 DIABETES Discharge Goals: Decrease discomfort and Diagnostic testing Activity: Resume your previous activity Non-emergency contact: Primary Care Provider Call non-emergency contact if: you have any medication questions Follow-up/Referrals: Astrid Artis MD [Primary Care Provider] - 03/15/19 12:45 pm Diet: Carb Consistent or DM2 and Heart Healthy Addtl Provider Instructions: HOSPITAL FOLLOW UP WITH DR ASTRID ARTIS ON 03/15/2019 @ 12: 45 PM PLEASE FOLLOW UP WITH CARDIOLOGY AT [facility] CARDIOLOGY SUITE FOR LEXISCAN CARDIAC STRESS TEST YOU BLOOD SUGARS HAS BEEN DIFFICULT TO CONTROL NEW MEDICATION: 1.Lopressor 12.5 mg daily -for High blood pressure you may need further adjustment /addition of blood pressure medication -please follow up with Dr Astrid Artis for recommendation you will need Zio Patch a 14 days wearable hall monitor to asses for episodes of high heart rate /tachycardia [facility] clinic will be able to arrange for that you will need a referral/order form Dr Astrid Artis Prescriptions: New metoprolol tartrate 25 mg tablet 12.5 mg PO DAILY 30 Days Qty: 15 RF: 0 Continued metformin 850 mg tablet 850 mg PO QDL RF: 0 simvastatin 40 mg tablet 40 mg PO HS RF: 0 losartan 25 mg tablet 25 mg PO HS RF: 0 sertraline 25 mg tablet 25 mg PO HS RF: 0 omeprazole 20 mg capsule,delayed release(DR/EC) 20 mg PO HS RF: 0 sertraline 50 mg tablet 50 mg PO HS RF: 0 Novolog Flexpen U-100 Insulin 100 unit/mL (3 mL) Insulin Pen SUBCUT DIRECTED RF: 0 Basaglar KwikPen U-100 Insulin 100 unit/mL (3 mL) insulin pen 65 unit subcut BID RF: 0 multivitamin Tablet 1 tab PO DAILY RF: 0 cyanocobalamin (vitamin B-12) 1,000 mcg Tablet 1,000 mcg PO DAILY RF: 0 magnesium 250 mg Tablet 500 mg PO DAILY RF: 0 cyanocobalamin (vitamin B-12) [Vitamin B-12] 1,000 mcg Tablet 1,000 mcg PO HS RF: 0 magnesium 250 mg Tablet 500 mg PO HS RF: 0 Novolog Flexpen U-100 Insulin 100 unit/mL (3 mL) Insulin Pen See Rx Instructions .ROUTE .COMPLEX RF: 0 metformin 850 mg tablet 1,700 mg PO HS RF: 0 Stand-Alone Forms: [facility] Discharge Orders: Discharge Order (Routine); Ordered 03/09/19 Ordered By: Elena Flores Admission Data Admit Date/Time: 03/08/19 18:48 Attending Provider: Elena Flores Admit Provider: Judy Brown Primary Care Provider: Astrid Artis Other Providers: Judy Brown ; Joseph Bravo Service: Telemetry
[2019-03-09] MEDS ORDERED: BASAGLAR INSULIN SQ SCH (21:00)
[2019-03-10] MEDS ORDERED: INSULIN ASPART 100 UNITS/ML 3 ML PEN SC SCH
== END 2019-03-09 18:05 | disposition home or self-care (01) ==
LOC: 2S 16:25 → ED 16:25 → 2S 19:54